=== PATIENT | male | born 2000 | race Two or more races ===

== ENCOUNTER 2023-10-08 23:27 | Emergency (ER) | payer MEDICAID, OTHER ==
[~2023-10-08] VITALS: Ht 180.3 cm; Wt 84.8 kg
[2023-10-09] MEDS ORDERED: ALBU108A5 IN (00:55)
[2023-10-09] MEDS ORDERED: BENZ200C64 PO (00:55)
[2023-10-09] MEDS ORDERED: AZITTAB PO (00:55)
[2023-10-09] MEDS ORDERED: PRED20TA2 PO (00:55)
[2023-10-09] MEDS ORDERED: BENZLOZ2 MT (00:58)
[2023-10-09] MEDS: ALBUTEROL SULF 2.5 MG/0.5ML(0.5%) NEB SOLN NEB ONE (01:28)
[2023-10-09] MEDS: IPRATROPIUM BROM 0.5 MG/2.5ML INH SOL NEB ONE (01:28)
[2023-10-09] MEDS: DexAMETHasone SOD PHOS 10MG/1ML VIAL INJ IM ONE (02:42)
[2023-10-09] MEDS: guaiFENesin-CODEINE Liq 5 ML UD PO ONE (02:42)
[2023-10-09] MEDS: cefTRIAXone SOD 1,000 MG VL IM ONE (02:44)
[2023-10-09 03:05] VITALS: BP 133/79; PULSE 99; RESP 18; TEMP 98.2; O2SAT 95
== END 2023-10-09 03:05 | disposition home or self-care (01) ==
LOC: ER 23:27
DX: J20.9 Acute bronchitis, unspecified (principal); J03.90 Acute tonsillitis, unspecified; R06.02 Shortness of breath
CPT/HCPCS: 94640; 96372; 99284; J0696; J1100; J7644

== ENCOUNTER 2023-12-02 08:58 | Emergency (ER) | payer MEDICAID ==
[~2023-12-02] VITALS: Ht 180.3 cm; Wt 81.5 kg
[~2023-12-02 08:58] MED LIST: ALBU108A5 IN; AZITTAB PO; BENZ200C64 PO; BENZLOZ2 MT; PRED20TA2 PO
[2023-12-02 09:20] VITALS: BP 141/67; PULSE 91; RESP 16; TEMP 98; O2SAT 99
[2023-12-02] MEDS ORDERED: TAMS-35 PO (09:29)
[2023-12-02] MEDS ORDERED: AZITTAB PO (09:50)
[2023-12-02] MEDS ORDERED: PROM1SOL4 PO (09:50)
== END 2023-12-02 09:58 | disposition home or self-care (01) ==
LOC: ER 08:58
DX: J02.9 Acute pharyngitis, unspecified (principal); J06.9 Acute upper respiratory infection, unspecified
CPT/HCPCS: 71045